=== PATIENT | female | born 1995 | race Caucasian/White ===

== ENCOUNTER 2018-08-03 16:48 | Emergency (ER) | payer OTHER ==
[~2018-08-03] VITALS: Ht 160 cm; Wt 82.6 kg
[2018-08-03 16:59] VITALS: Ht 160 cm; Wt 82.6 kg
[2018-08-03 18:10] VITALS: BP 129/66
== END 2018-08-03 18:10 | disposition home or self-care (01) ==
LOC: ED 16:48
DX: M26.603 Bilateral temporomandibular joint disorder, unspecified (principal); R00.8 Other abnormalities of heart beat; F17.210 Nicotine dependence, cigarettes, uncomplicated; Z71.6 Tobacco abuse counseling; Z86.2 Personal history of diseases of the blood and blood-forming organs and certain disorders involving the immune mechanism
CPT/HCPCS: 99406